=== PATIENT | male | born 1955 ===

== ENCOUNTER 2021-12-19 11:42 | Inpatient (IN) | payer MEDICARE, OTHER ==
[~2021-12-19] VITALS: Ht 177.8 cm; Wt 95.3 kg
[2021-12-19 14:50] VITALS: BP 154/97
[2021-12-19] MEDS ORDERED: MELATONIN 5 MG TABLET PO PRN (15:00)
[2021-12-19] MEDS: SIMETHICONE 80 MG CHEWABLE TABLET CHEW SCH ×2 (16:51→20:23)
[2021-12-19] MEDS: NIACIN 500 MG TABLET PO SCH (16:52)
[2021-12-19] MEDS: HEPARIN SODIUM,PORCINE 5,000 UNITS/ML VIAL SQ SCH ×2 (16:52→20:23)
[2021-12-19 17:15] VITALS: BP 112/71
[2021-12-19] MEDS: OxyCODONE HCL 5 MG IR TABLET PO PRN ×2 (17:35→23:41)
[2021-12-19] MEDS ORDERED: DiphenhydrAMINE HCL 25 MG CAPSULE PO PRN (17:45)
[2021-12-19 20:10] VITALS: BP 139/102
[2021-12-19] MEDS: ETHYL ALCOHOL 62% ANTISEPTIC NASAL SANITIZER 0.6 ML AMPUL NASAL SCH (20:24)
[2021-12-19] MEDS: DOCUSATE SODIUM 100 MG CAPSULE PO SCH (20:24)
[2021-12-19] MEDS: SENNA 187 MG TABLET PO SCH (20:24)
[2021-12-19] MEDS: GABAPENTIN 300 MG CAPSULE PO SCH (20:53)
[2021-12-20] MEDS: OMEPRAZOLE 20 MG CAPSULE PO SCH (06:28)
[2021-12-20 06:54] LABS: BASOPHILS % (AUTO) 0.4 % (0.0-2.0); EOSINOPHILS % (AUTO) 1.2 % (1.0-6.0); HEMATOCRIT 36.6 % (41-53); LYMPHOCYTES # (AUTO) 1.6 K/uL (1.0-4.8); MEAN CORPUSCULAR HEMOGLOBIN 30.5 pg (26.0-34.0); MEAN CORPUSCULAR HGB CONC 32.9 G/dL (31.0-37.0); MEAN CORPUSCULAR VOLUME 93 fL (80-100); MONOCYTES # (AUTO) 0.6 K/uL (0.1-1.0); MONOCYTES % (AUTO) 7.3 % (2.0-9.0); NEUTROPHILS # (AUTO) 6.5 K/uL (1.8-7.7); NEUTROPHILS % (AUTO) 73.1 % (40.0-70.0); PLATELET COUNT (AUTO) 235 K/uL (150-450); RED BLOOD CELL COUNT(AUTO) 3.94 MIL/uL (4.50-5.90); RED CELL DISTRIBUTION WIDTH 14.1 % (11.5-14.5)
[2021-12-20 07:12] LABS: ALBUMIN 3.5 g/dL (3.4-5.0); BILIRUBIN,TOTAL 0.9 mg/dL (0.1-1.0); CALCIUM, TOTAL 9.7 mg/dL (8.8-10.5); CREATININE 1.42 mg/dL (0.60-1.30); TOTAL PROTEIN, SERUM 7.5 g/dL (6.4-8.2)
[2021-12-20] MEDS: NIACIN 500 MG TABLET PO SCH ×2 (07:30→17:00)
[2021-12-20 07:40] VITALS: BP 125/82
[2021-12-20] MEDS: SIMETHICONE 80 MG CHEWABLE TABLET CHEW SCH ×4 (07:56→20:24)
[2021-12-20] MEDS: ETHYL ALCOHOL 62% ANTISEPTIC NASAL SANITIZER 0.6 ML AMPUL NASAL SCH ×2 (07:56→20:25)
[2021-12-20] MEDS: ATORVASTATIN CALCIUM 20 MG TABLET PO SCH (07:57)
[2021-12-20] MEDS: CloNIDine HCL 0.1 MG TABLET PO SCH (07:57)
[2021-12-20] MEDS: POLYETHYLENE GLYCOL 3350 17 GM PACKET PO SCH (07:57)
[2021-12-20] MEDS: DOCUSATE SODIUM 100 MG CAPSULE PO SCH ×2 (07:57→20:25)
[2021-12-20] MEDS: AmLODIPine BESYLATE 10 MG TABLET PO SCH (07:58)
[2021-12-20] MEDS: HEPARIN SODIUM,PORCINE 5,000 UNITS/ML VIAL SQ SCH ×3 (07:58→20:25)
[2021-12-20] MEDS: OxyCODONE HCL 5 MG IR TABLET PO PRN ×4 (07:59→23:25)
[2021-12-20] MEDS ORDERED: GABAPENTIN 300 MG CAPSULE PO SCH (09:00)
[2021-12-20 19:58] VITALS: BP 113/66
[2021-12-20] MEDS: SENNA 187 MG TABLET PO SCH (20:24)
[2021-12-20] MEDS: GABAPENTIN 300 MG CAPSULE PO SCH (20:24)
[2021-12-20] MEDS: TraZODone HCL 100 MG TABLET PO PRN (20:26)
[2021-12-21] MEDS: OMEPRAZOLE 20 MG CAPSULE PO SCH ×2 (06:25→06:50)
[2021-12-21] MEDS: OxyCODONE HCL 5 MG IR TABLET PO PRN ×3 (06:26→10:38)
[2021-12-21] MEDS: NIACIN 500 MG TABLET PO SCH ×2 (07:30→17:00)
[2021-12-21] MEDS: SIMETHICONE 80 MG CHEWABLE TABLET CHEW SCH ×4 (08:51→20:33)
[2021-12-21] MEDS: CloNIDine HCL 0.1 MG TABLET PO SCH (08:51)
[2021-12-21] MEDS: DOCUSATE SODIUM 100 MG CAPSULE PO SCH ×2 (08:52→20:33)
[2021-12-21] MEDS: ATORVASTATIN CALCIUM 20 MG TABLET PO SCH (08:52)
[2021-12-21] MEDS: AmLODIPine BESYLATE 10 MG TABLET PO SCH (08:52)
[2021-12-21] MEDS: POLYETHYLENE GLYCOL 3350 17 GM PACKET PO SCH (08:53)
[2021-12-21] MEDS: ACETAMINOPHEN 325 MG TABLET PO PRN (08:54)
[2021-12-21] MEDS: HEPARIN SODIUM,PORCINE 5,000 UNITS/ML VIAL SQ SCH ×3 (08:54→20:35)
[2021-12-21] MEDS: ETHYL ALCOHOL 62% ANTISEPTIC NASAL SANITIZER 0.6 ML AMPUL NASAL SCH ×2 (10:03→20:33)
[2021-12-21] MEDS: OxyCODONE HCL 10 MG IR TABLET PO PRN (14:30)
[2021-12-21 17:59] LABS: APPEARANCE,URINE CLEAR (CLEAR); BILIRUBIN,URINE NEGATIVE (NEGATIVE); GLUCOSE, URINE (UA) NEGATIVE (NEGATIVE); KETONES,URINE NEGATIVE (NEGATIVE); LEUKOCYTE ESTERASE ,URINE NEGATIVE (NEGATIVE); NITRATE,URINE NEGATIVE (NEGATIVE); OCCULT BLOOD,URINE NEGATIVE (NEGATIVE); PH,URINE 5.5 (5.0-8.0); PROTEIN,URINE NEGATIVE (NEGATIVE); SPECIFIC GRAVITIY, URINE 1.015 (1.003-1.030); UROBILINOGEN,URINE <=1.0 mg/dL (<=1.0)
[2021-12-21 20:30] VITALS: BP 118/70
[2021-12-21] MEDS: TAMSULOSIN HCL 0.4 MG CAPSULE PO SCH (20:33)
[2021-12-21] MEDS: GABAPENTIN 300 MG CAPSULE PO SCH (20:33)
[2021-12-21] MEDS: SENNA 187 MG TABLET PO SCH (20:34)
[2021-12-21] MEDS: TraZODone HCL 100 MG TABLET PO PRN (20:34)
[2021-12-22] MEDS: COLCHICINE 0.6 MG TABLET PO PRN ×2 (05:02→17:07)
[2021-12-22] MEDS: OMEPRAZOLE 20 MG CAPSULE PO SCH (06:36)
[2021-12-22] MEDS: NIACIN 500 MG TABLET PO SCH ×2 (07:30→17:00)
[2021-12-22 08:17] VITALS: BP 131/66
[2021-12-22] MEDS: POLYETHYLENE GLYCOL 3350 17 GM PACKET PO SCH (09:00)
[2021-12-22] MEDS: DOCUSATE SODIUM 100 MG CAPSULE PO SCH ×2 (09:00→20:34)
[2021-12-22] MEDS: OxyCODONE HCL 10 MG IR TABLET PO PRN ×3 (09:38→22:03)
[2021-12-22] MEDS: ETHYL ALCOHOL 62% ANTISEPTIC NASAL SANITIZER 0.6 ML AMPUL NASAL SCH ×2 (09:38→20:33)
[2021-12-22] MEDS: SIMETHICONE 80 MG CHEWABLE TABLET CHEW SCH ×4 (09:38→20:33)
[2021-12-22] MEDS: AmLODIPine BESYLATE 10 MG TABLET PO SCH (09:38)
[2021-12-22] MEDS: ATORVASTATIN CALCIUM 20 MG TABLET PO SCH (09:38)
[2021-12-22] MEDS: CloNIDine HCL 0.1 MG TABLET PO SCH (09:38)
[2021-12-22] MEDS: HEPARIN SODIUM,PORCINE 5,000 UNITS/ML VIAL SQ SCH ×3 (09:39→20:29)
[2021-12-22 20:30] VITALS: BP 122/81
[2021-12-22] MEDS: GABAPENTIN 300 MG CAPSULE PO SCH (20:33)
[2021-12-22] MEDS: TAMSULOSIN HCL 0.4 MG CAPSULE PO SCH (20:33)
[2021-12-22] MEDS: SENNA 187 MG TABLET PO SCH (20:35)
[2021-12-22] MEDS: TraZODone HCL 100 MG TABLET PO PRN (21:58)
[2021-12-23] MEDS: OMEPRAZOLE 20 MG CAPSULE PO SCH (06:08)
[2021-12-23] MEDS: OxyCODONE HCL 10 MG IR TABLET PO PRN ×3 (06:09→22:32)
[2021-12-23] MEDS: NIACIN 500 MG TABLET PO SCH ×2 (07:30→16:21)
[2021-12-23 08:00] VITALS: BP 117/66
[2021-12-23] MEDS: HEPARIN SODIUM,PORCINE 5,000 UNITS/ML VIAL SQ SCH ×3 (08:01→20:25)
[2021-12-23] MEDS: SIMETHICONE 80 MG CHEWABLE TABLET CHEW SCH ×4 (08:02→20:22)
[2021-12-23] MEDS: ATORVASTATIN CALCIUM 20 MG TABLET PO SCH (08:04)
[2021-12-23] MEDS: CloNIDine HCL 0.1 MG TABLET PO SCH (08:04)
[2021-12-23] MEDS: AmLODIPine BESYLATE 10 MG TABLET PO SCH (08:04)
[2021-12-23] MEDS: DOCUSATE SODIUM 100 MG CAPSULE PO SCH ×2 (08:04→20:23)
[2021-12-23] MEDS: POLYETHYLENE GLYCOL 3350 17 GM PACKET PO SCH (08:04)
[2021-12-23] MEDS: ETHYL ALCOHOL 62% ANTISEPTIC NASAL SANITIZER 0.6 ML AMPUL NASAL SCH ×2 (08:07→20:24)
[2021-12-23] MEDS: COLCHICINE 0.6 MG TABLET PO PRN (09:20)
[2021-12-23 20:00] VITALS: BP 128/90
[2021-12-23] MEDS: TAMSULOSIN HCL 0.4 MG CAPSULE PO SCH (20:23)
[2021-12-23] MEDS: TraZODone HCL 100 MG TABLET PO PRN (20:24)
[2021-12-23] MEDS: GABAPENTIN 300 MG CAPSULE PO SCH (20:24)
[2021-12-23] MEDS: SENNA 187 MG TABLET PO SCH (20:24)
[2021-12-24] MEDS: OMEPRAZOLE 20 MG CAPSULE PO SCH (06:30)
[2021-12-24] MEDS: NIACIN 500 MG TABLET PO SCH ×2 (08:08→16:23)
[2021-12-24] MEDS: DOCUSATE SODIUM 100 MG CAPSULE PO SCH ×2 (08:08→20:39)
[2021-12-24] MEDS: ATORVASTATIN CALCIUM 20 MG TABLET PO SCH (08:09)
[2021-12-24] MEDS: SIMETHICONE 80 MG CHEWABLE TABLET CHEW SCH ×4 (08:09→20:40)
[2021-12-24] MEDS: ETHYL ALCOHOL 62% ANTISEPTIC NASAL SANITIZER 0.6 ML AMPUL NASAL SCH ×2 (08:10→20:40)
[2021-12-24] MEDS: AmLODIPine BESYLATE 10 MG TABLET PO SCH (08:10)
[2021-12-24] MEDS: CloNIDine HCL 0.1 MG TABLET PO SCH (08:11)
[2021-12-24] MEDS: HEPARIN SODIUM,PORCINE 5,000 UNITS/ML VIAL SQ SCH ×3 (08:14→20:40)
[2021-12-24] MEDS: OxyCODONE HCL 5 MG IR TABLET PO PRN ×2 (08:24→22:26)
[2021-12-24 08:30] VITALS: BP 109/82
[2021-12-24] MEDS: POLYETHYLENE GLYCOL 3350 17 GM PACKET PO SCH (08:30)
[2021-12-24] MEDS: OxyCODONE HCL 10 MG IR TABLET PO PRN (14:58)
[2021-12-24 20:04] VITALS: BP 139/86
[2021-12-24] MEDS: TAMSULOSIN HCL 0.4 MG CAPSULE PO SCH (20:39)
[2021-12-24] MEDS: SENNA 187 MG TABLET PO SCH (20:39)
[2021-12-24] MEDS: TraZODone HCL 100 MG TABLET PO PRN (20:39)
[2021-12-24] MEDS: GABAPENTIN 300 MG CAPSULE PO SCH (20:40)
[2021-12-25] MEDS: OMEPRAZOLE 20 MG CAPSULE PO SCH (06:12)
[2021-12-25] MEDS: NIACIN 500 MG TABLET PO SCH ×2 (07:30→17:00)
[2021-12-25] MEDS: SIMETHICONE 80 MG CHEWABLE TABLET CHEW SCH ×4 (07:53→20:55)
[2021-12-25] MEDS: CloNIDine HCL 0.1 MG TABLET PO SCH (07:54)
[2021-12-25] MEDS: AmLODIPine BESYLATE 10 MG TABLET PO SCH (07:54)
[2021-12-25] MEDS: ETHYL ALCOHOL 62% ANTISEPTIC NASAL SANITIZER 0.6 ML AMPUL NASAL SCH ×2 (07:54→20:55)
[2021-12-25] MEDS: POLYETHYLENE GLYCOL 3350 17 GM PACKET PO SCH (07:54)
[2021-12-25] MEDS: ATORVASTATIN CALCIUM 20 MG TABLET PO SCH (07:54)
[2021-12-25] MEDS: DOCUSATE SODIUM 100 MG CAPSULE PO SCH ×2 (07:54→20:55)
[2021-12-25 07:55] VITALS: BP 128/78
[2021-12-25] MEDS: HEPARIN SODIUM,PORCINE 5,000 UNITS/ML VIAL SQ SCH ×3 (07:55→20:57)
[2021-12-25] MEDS: OxyCODONE HCL 10 MG IR TABLET PO PRN (07:56)
[2021-12-25] MEDS: OxyCODONE HCL 5 MG IR TABLET PO PRN ×3 (13:10→23:08)
[2021-12-25] MEDS: TraZODone HCL 100 MG TABLET PO PRN (20:55)
[2021-12-25] MEDS: TAMSULOSIN HCL 0.4 MG CAPSULE PO SCH (20:56)
[2021-12-25] MEDS: GABAPENTIN 300 MG CAPSULE PO SCH (20:56)
[2021-12-25] MEDS: COLCHICINE 0.6 MG TABLET PO PRN (20:58)
[2021-12-25 21:00] VITALS: BP 103/71
[2021-12-25] MEDS: SENNA 187 MG TABLET PO SCH (21:19)
[2021-12-26] MEDS: OMEPRAZOLE 20 MG CAPSULE PO SCH (06:09)
[2021-12-26] MEDS: NIACIN 500 MG TABLET PO SCH ×2 (07:30→16:12)
[2021-12-26] MEDS: ETHYL ALCOHOL 62% ANTISEPTIC NASAL SANITIZER 0.6 ML AMPUL NASAL SCH ×2 (08:25→21:19)
[2021-12-26] MEDS: CloNIDine HCL 0.1 MG TABLET PO SCH (08:25)
[2021-12-26] MEDS: DOCUSATE SODIUM 100 MG CAPSULE PO SCH ×2 (08:25→21:20)
[2021-12-26] MEDS: SIMETHICONE 80 MG CHEWABLE TABLET CHEW SCH ×4 (08:25→21:20)
[2021-12-26] MEDS: ATORVASTATIN CALCIUM 20 MG TABLET PO SCH (08:25)
[2021-12-26] MEDS: HEPARIN SODIUM,PORCINE 5,000 UNITS/ML VIAL SQ SCH ×3 (08:26→21:20)
[2021-12-26] MEDS: POLYETHYLENE GLYCOL 3350 17 GM PACKET PO SCH (08:26)
[2021-12-26] MEDS: AmLODIPine BESYLATE 10 MG TABLET PO SCH (08:26)
[2021-12-26 09:07] VITALS: BP 116/75
[2021-12-26] MEDS: OxyCODONE HCL 5 MG IR TABLET PO PRN ×3 (13:20→22:33)
[2021-12-26 20:00] VITALS: BP_SYST 114; BP_SYST 152; BP_DIAS 47; BP_DIAS 88
[2021-12-26] MEDS: GABAPENTIN 300 MG CAPSULE PO SCH (21:19)
[2021-12-26] MEDS: TAMSULOSIN HCL 0.4 MG CAPSULE PO SCH (21:19)
[2021-12-26] MEDS: SENNA 187 MG TABLET PO SCH (21:19)
[2021-12-26] MEDS: TraZODone HCL 100 MG TABLET PO PRN (21:20)
[2021-12-27] MEDS: OMEPRAZOLE 20 MG CAPSULE PO SCH (06:35)
[2021-12-27] MEDS: NIACIN 500 MG TABLET PO SCH ×2 (07:30→16:30)
[2021-12-27 07:47] LABS: BASOPHILS % (AUTO) 0.6 % (0.0-2.0); EOSINOPHILS % (AUTO) 2.8 % (1.0-6.0); HEMATOCRIT 32.8 % (41-53); LYMPHOCYTES # (AUTO) 2.1 K/uL (1.0-4.8); LYMPHOCYTES % (AUTO) 27.8 % (22.0-44.0); MEAN CORPUSCULAR HEMOGLOBIN 30.9 pg (26.0-34.0); MEAN CORPUSCULAR HGB CONC 33.6 G/dL (31.0-37.0); MEAN CORPUSCULAR VOLUME 92 fL (80-100); MONOCYTES # (AUTO) 0.5 K/uL (0.1-1.0); MONOCYTES % (AUTO) 6.1 % (2.0-9.0); NEUTROPHILS # (AUTO) 4.8 K/uL (1.8-7.7); NEUTROPHILS % (AUTO) 62.7 % (40.0-70.0); PLATELET COUNT (AUTO) 369 K/uL (150-450); RED BLOOD CELL COUNT(AUTO) 3.56 MIL/uL (4.50-5.90); RED CELL DISTRIBUTION WIDTH 13.6 % (11.5-14.5)
[2021-12-27] MEDS: DOCUSATE SODIUM 100 MG CAPSULE PO SCH ×2 (07:51→20:40)
[2021-12-27] MEDS: SIMETHICONE 80 MG CHEWABLE TABLET CHEW SCH ×4 (07:51→20:40)
[2021-12-27] MEDS: AmLODIPine BESYLATE 10 MG TABLET PO SCH (07:51)
[2021-12-27] MEDS: ATORVASTATIN CALCIUM 20 MG TABLET PO SCH (07:51)
[2021-12-27] MEDS: HEPARIN SODIUM,PORCINE 5,000 UNITS/ML VIAL SQ SCH ×4 (07:51→20:48)
[2021-12-27] MEDS: POLYETHYLENE GLYCOL 3350 17 GM PACKET PO SCH (07:51)
[2021-12-27] MEDS: ETHYL ALCOHOL 62% ANTISEPTIC NASAL SANITIZER 0.6 ML AMPUL NASAL SCH ×2 (07:52→20:41)
[2021-12-27] MEDS: CloNIDine HCL 0.1 MG TABLET PO SCH (07:52)
[2021-12-27 07:53] LABS: CALCIUM, TOTAL 9.5 mg/dL (8.8-10.5); CREATININE 1.62 mg/dL (0.60-1.30); POTASSIUM 4.1 mmol/L (3.5-5.1)
[2021-12-27 08:57] VITALS: BP 119/68
[2021-12-27 09:15] VITALS: BP 119/68
[2021-12-27] MEDS: OxyCODONE HCL 5 MG IR TABLET PO PRN (10:37)
[2021-12-27] MEDS: GABAPENTIN 300 MG CAPSULE PO SCH (20:40)
[2021-12-27] MEDS: TAMSULOSIN HCL 0.4 MG CAPSULE PO SCH (20:40)
[2021-12-27 20:41] VITALS: BP 127/68
[2021-12-27] MEDS: OxyCODONE HCL 10 MG IR TABLET PO PRN (20:41)
[2021-12-27] MEDS: TraZODone HCL 100 MG TABLET PO PRN (22:04)
[2021-12-27] MEDS: SENNA 187 MG TABLET PO SCH (22:04)
[2021-12-28] MEDS: COLCHICINE 0.6 MG TABLET PO PRN (06:22)
[2021-12-28] MEDS: OMEPRAZOLE 20 MG CAPSULE PO SCH (06:22)
[2021-12-28] MEDS: NIACIN 500 MG TABLET PO SCH ×2 (07:30→16:32)
[2021-12-28 07:40] VITALS: BP 135/86
[2021-12-28] MEDS: AmLODIPine BESYLATE 10 MG TABLET PO SCH (08:12)
[2021-12-28] MEDS: CloNIDine HCL 0.1 MG TABLET PO SCH (08:12)
[2021-12-28] MEDS: ETHYL ALCOHOL 62% ANTISEPTIC NASAL SANITIZER 0.6 ML AMPUL NASAL SCH ×2 (08:12→20:58)
[2021-12-28] MEDS: SIMETHICONE 80 MG CHEWABLE TABLET CHEW SCH ×4 (08:12→20:58)
[2021-12-28] MEDS: POLYETHYLENE GLYCOL 3350 17 GM PACKET PO SCH (08:12)
[2021-12-28] MEDS: DOCUSATE SODIUM 100 MG CAPSULE PO SCH ×2 (08:12→20:58)
[2021-12-28] MEDS: ATORVASTATIN CALCIUM 20 MG TABLET PO SCH (08:12)
[2021-12-28] MEDS: HEPARIN SODIUM,PORCINE 5,000 UNITS/ML VIAL SQ SCH ×3 (08:13→20:58)
[2021-12-28] MEDS: OxyCODONE HCL 5 MG IR TABLET PO PRN ×2 (08:13→21:57)
[2021-12-28 20:10] VITALS: BP 131/78
[2021-12-28] MEDS: TAMSULOSIN HCL 0.4 MG CAPSULE PO SCH (20:58)
[2021-12-28] MEDS: SENNA 187 MG TABLET PO SCH (20:58)
[2021-12-28] MEDS: GABAPENTIN 300 MG CAPSULE PO SCH (20:59)
[2021-12-28] MEDS: TraZODone HCL 100 MG TABLET PO PRN (21:04)
[2021-12-29] MEDS ORDERED: ATOR20TA86 PO (03:57)
[2021-12-29] MEDS ORDERED: AMLO-258 PO (03:58)
[2021-12-29] MEDS ORDERED: GABA-1181 PO ×2 (04:02→04:13)
[2021-12-29] MEDS ORDERED: CLON0.1T2 PO (04:02)
[2021-12-29] MEDS ORDERED: DOCU-385 PO (04:12)
[2021-12-29] MEDS ORDERED: OMEP20 PO (04:15)
[2021-12-29] MEDS ORDERED: SIME80TA82 PO (04:16)
[2021-12-29] MEDS ORDERED: TAMS-13 PO (04:17)
[2021-12-29] MEDS: COLCHICINE 0.6 MG TABLET PO PRN (06:21)
[2021-12-29] MEDS: OMEPRAZOLE 20 MG CAPSULE PO SCH (06:21)
[2021-12-29] MEDS: NIACIN 500 MG TABLET PO SCH ×2 (07:30→16:18)
[2021-12-29 08:05] VITALS: BP 118/69
[2021-12-29] MEDS: ETHYL ALCOHOL 62% ANTISEPTIC NASAL SANITIZER 0.6 ML AMPUL NASAL SCH ×2 (08:18→20:37)
[2021-12-29] MEDS: SIMETHICONE 80 MG CHEWABLE TABLET CHEW SCH ×4 (08:18→20:36)
[2021-12-29] MEDS: POLYETHYLENE GLYCOL 3350 17 GM PACKET PO SCH (08:18)
[2021-12-29] MEDS: AmLODIPine BESYLATE 10 MG TABLET PO SCH (08:19)
[2021-12-29] MEDS: CloNIDine HCL 0.1 MG TABLET PO SCH (08:19)
[2021-12-29] MEDS: ATORVASTATIN CALCIUM 20 MG TABLET PO SCH (08:19)
[2021-12-29] MEDS: DOCUSATE SODIUM 100 MG CAPSULE PO SCH ×2 (08:19→20:37)
[2021-12-29] MEDS: HEPARIN SODIUM,PORCINE 5,000 UNITS/ML VIAL SQ SCH ×3 (08:20→20:38)
[2021-12-29] MEDS: OxyCODONE HCL 5 MG IR TABLET PO PRN ×3 (09:03→23:55)
[2021-12-29 20:30] VITALS: BP 131/75
[2021-12-29] MEDS: GABAPENTIN 300 MG CAPSULE PO SCH (20:37)
[2021-12-29] MEDS: SENNA 187 MG TABLET PO SCH (20:37)
[2021-12-29] MEDS: TraZODone HCL 100 MG TABLET PO PRN (20:37)
[2021-12-29] MEDS: TAMSULOSIN HCL 0.4 MG CAPSULE PO SCH (20:37)
[2021-12-30] MEDS: OMEPRAZOLE 20 MG CAPSULE PO SCH (06:15)
[2021-12-30] MEDS: OxyCODONE HCL 5 MG IR TABLET PO PRN ×3 (06:15→23:28)
[2021-12-30] MEDS: NIACIN 500 MG TABLET PO SCH ×3 (07:30→16:52)
[2021-12-30 08:07] VITALS: BP 119/88
[2021-12-30] MEDS: SIMETHICONE 80 MG CHEWABLE TABLET CHEW SCH ×4 (08:15→21:06)
[2021-12-30] MEDS: DOCUSATE SODIUM 100 MG CAPSULE PO SCH ×2 (08:16→21:06)
[2021-12-30] MEDS: ATORVASTATIN CALCIUM 20 MG TABLET PO SCH (08:16)
[2021-12-30] MEDS: ETHYL ALCOHOL 62% ANTISEPTIC NASAL SANITIZER 0.6 ML AMPUL NASAL SCH ×2 (08:16→21:06)
[2021-12-30] MEDS: CloNIDine HCL 0.1 MG TABLET PO SCH (08:16)
[2021-12-30] MEDS: AmLODIPine BESYLATE 10 MG TABLET PO SCH (08:17)
[2021-12-30] MEDS: POLYETHYLENE GLYCOL 3350 17 GM PACKET PO SCH (08:17)
[2021-12-30] MEDS: HEPARIN SODIUM,PORCINE 5,000 UNITS/ML VIAL SQ SCH ×3 (08:20→21:07)
[2021-12-30 20:50] VITALS: BP 131/80
[2021-12-30] MEDS: SENNA 187 MG TABLET PO SCH (21:06)
[2021-12-30] MEDS: GABAPENTIN 300 MG CAPSULE PO SCH (21:06)
[2021-12-30] MEDS: TAMSULOSIN HCL 0.4 MG CAPSULE PO SCH (21:06)
[2021-12-30] MEDS: TraZODone HCL 100 MG TABLET PO PRN (21:07)
[2021-12-31] MEDS: OMEPRAZOLE 20 MG CAPSULE PO SCH (06:40)
[2021-12-31] MEDS: NIACIN 500 MG TABLET PO SCH ×2 (07:30→16:02)
[2021-12-31 07:34] LABS: BASOPHILS % (AUTO) 0.4 % (0.0-2.0); EOSINOPHILS % (AUTO) 2.2 % (1.0-6.0); HEMATOCRIT 30.7 % (41-53); HEMOGLOBIN 10.3 g/dL (13.5-17.5); LYMPHOCYTES # (AUTO) 1.7 K/uL (1.0-4.8); LYMPHOCYTES % (AUTO) 24.4 % (22.0-44.0); MEAN CORPUSCULAR HEMOGLOBIN 30.8 pg (26.0-34.0); MEAN CORPUSCULAR HGB CONC 33.6 G/dL (31.0-37.0); MEAN CORPUSCULAR VOLUME 92 fL (80-100); MONOCYTES # (AUTO) 0.6 K/uL (0.1-1.0); MONOCYTES % (AUTO) 8.6 % (2.0-9.0); NEUTROPHILS # (AUTO) 4.6 K/uL (1.8-7.7); NEUTROPHILS % (AUTO) 64.4 % (40.0-70.0); PLATELET COUNT (AUTO) 328 K/uL (150-450); RED BLOOD CELL COUNT(AUTO) 3.35 MIL/uL (4.50-5.90); RED CELL DISTRIBUTION WIDTH 13.9 % (11.5-14.5)
[2021-12-31 07:55] VITALS: BP 123/83
[2021-12-31] MEDS: SIMETHICONE 80 MG CHEWABLE TABLET CHEW SCH ×4 (07:55→20:08)
[2021-12-31] MEDS: DOCUSATE SODIUM 100 MG CAPSULE PO SCH ×2 (07:55→20:08)
[2021-12-31] MEDS: CloNIDine HCL 0.1 MG TABLET PO SCH (07:55)
[2021-12-31] MEDS: ATORVASTATIN CALCIUM 20 MG TABLET PO SCH (07:55)
[2021-12-31] MEDS: ETHYL ALCOHOL 62% ANTISEPTIC NASAL SANITIZER 0.6 ML AMPUL NASAL SCH ×2 (07:55→20:09)
[2021-12-31] MEDS: AmLODIPine BESYLATE 10 MG TABLET PO SCH (07:55)
[2021-12-31] MEDS: POLYETHYLENE GLYCOL 3350 17 GM PACKET PO SCH (07:55)
[2021-12-31] MEDS: HEPARIN SODIUM,PORCINE 5,000 UNITS/ML VIAL SQ SCH ×3 (07:57→20:09)
[2021-12-31] MEDS: OxyCODONE HCL 5 MG IR TABLET PO PRN (07:57)
[2021-12-31 08:00] LABS: CALCIUM, TOTAL 9.1 mg/dL (8.8-10.5); CHOL/HDL RATIO 3.4 (4.2-7.3); CREATININE 1.54 mg/dL (0.60-1.30); POTASSIUM 3.9 mmol/L (3.5-5.1)
[2021-12-31 11:49] LABS: APPEARANCE,URINE CLEAR (CLEAR); BILIRUBIN,URINE NEGATIVE (NEGATIVE); GLUCOSE, URINE (UA) NEGATIVE (NEGATIVE); KETONES,URINE NEGATIVE (NEGATIVE); LEUKOCYTE ESTERASE ,URINE NEGATIVE (NEGATIVE); NITRATE,URINE NEGATIVE (NEGATIVE); OCCULT BLOOD,URINE NEGATIVE (NEGATIVE); PH,URINE 6.5 (5.0-8.0); PROTEIN,URINE NEGATIVE (NEGATIVE); SPECIFIC GRAVITIY, URINE 1.011 (1.003-1.030); UROBILINOGEN,URINE <=1.0 mg/dL (<=1.0)
[2021-12-31 12:00] LABS: BACTERIA,URINE None Seen /HPF (None Seen); RBC,URINE None Seen /HPF (0-2); WBC,URINE None Seen /HPF (0-5)
[2021-12-31] MEDS: TAMSULOSIN HCL 0.4 MG CAPSULE PO SCH (20:08)
[2021-12-31] MEDS: GABAPENTIN 300 MG CAPSULE PO SCH (20:08)
[2021-12-31] MEDS: SENNA 187 MG TABLET PO SCH (20:08)
[2021-12-31] MEDS: TraZODone HCL 100 MG TABLET PO PRN (20:09)
[2021-12-31 20:30] VITALS: BP 112/72
[2022-01-01] MEDS: OxyCODONE HCL 5 MG IR TABLET PO PRN ×3 (03:43→22:02)
[2022-01-01] MEDS: OMEPRAZOLE 20 MG CAPSULE PO SCH (06:27)
[2022-01-01] MEDS: NIACIN 500 MG TABLET PO SCH ×2 (07:30→16:49)
[2022-01-01 08:05] VITALS: BP 112/64
[2022-01-01] MEDS: ETHYL ALCOHOL 62% ANTISEPTIC NASAL SANITIZER 0.6 ML AMPUL NASAL SCH ×2 (08:07→20:32)
[2022-01-01] MEDS: SIMETHICONE 80 MG CHEWABLE TABLET CHEW SCH ×4 (08:07→20:32)
[2022-01-01] MEDS: DOCUSATE SODIUM 100 MG CAPSULE PO SCH ×2 (08:08→20:32)
[2022-01-01] MEDS: AmLODIPine BESYLATE 10 MG TABLET PO SCH (08:08)
[2022-01-01] MEDS: POLYETHYLENE GLYCOL 3350 17 GM PACKET PO SCH (08:08)
[2022-01-01] MEDS: ATORVASTATIN CALCIUM 20 MG TABLET PO SCH (08:08)
[2022-01-01] MEDS: HEPARIN SODIUM,PORCINE 5,000 UNITS/ML VIAL SQ SCH ×3 (08:08→20:32)
[2022-01-01] MEDS: CloNIDine HCL 0.1 MG TABLET PO SCH (08:08)
[2022-01-01 20:01] VITALS: BP 128/66
[2022-01-01] MEDS: TAMSULOSIN HCL 0.4 MG CAPSULE PO SCH (20:32)
[2022-01-01] MEDS: GABAPENTIN 300 MG CAPSULE PO SCH (20:32)
[2022-01-01] MEDS: TraZODone HCL 100 MG TABLET PO PRN (20:32)
[2022-01-01] MEDS: SENNA 187 MG TABLET PO SCH (20:32)
[2022-01-02] MEDS: OxyCODONE HCL 5 MG IR TABLET PO PRN ×3 (02:31→20:26)
[2022-01-02] MEDS: OMEPRAZOLE 20 MG CAPSULE PO SCH (06:25)
[2022-01-02] MEDS: COLCHICINE 0.6 MG TABLET PO PRN (06:29)
[2022-01-02] MEDS: NIACIN 500 MG TABLET PO SCH ×2 (07:30→15:27)
[2022-01-02 08:30] VITALS: BP 142/86
[2022-01-02] MEDS: CloNIDine HCL 0.1 MG TABLET PO SCH (08:39)
[2022-01-02] MEDS: DOCUSATE SODIUM 100 MG CAPSULE PO SCH ×2 (08:39→20:23)
[2022-01-02] MEDS: ATORVASTATIN CALCIUM 20 MG TABLET PO SCH (08:39)
[2022-01-02] MEDS: AmLODIPine BESYLATE 10 MG TABLET PO SCH (08:39)
[2022-01-02] MEDS: POLYETHYLENE GLYCOL 3350 17 GM PACKET PO SCH (08:40)
[2022-01-02] MEDS: SIMETHICONE 80 MG CHEWABLE TABLET CHEW SCH ×4 (08:40→20:22)
[2022-01-02] MEDS: ETHYL ALCOHOL 62% ANTISEPTIC NASAL SANITIZER 0.6 ML AMPUL NASAL SCH ×2 (08:40→20:23)
[2022-01-02] MEDS: HEPARIN SODIUM,PORCINE 5,000 UNITS/ML VIAL SQ SCH ×3 (08:40→20:23)
[2022-01-02] MEDS: ACETAMINOPHEN 325 MG TABLET PO PRN (08:44)
[2022-01-02] MEDS: FEBUXOSTAT 40 MG TABLET PO SCH (10:42)
[2022-01-02 11:09] LABS: BASOPHILS % (AUTO) 0.4 % (0.0-2.0); EOSINOPHILS % (AUTO) 0.2 % (1.0-6.0); HEMATOCRIT 30.3 % (41-53); LYMPHOCYTES # (AUTO) 0.9 K/uL (1.0-4.8); LYMPHOCYTES % (AUTO) 8.3 % (22.0-44.0); MEAN CORPUSCULAR HEMOGLOBIN 30.2 pg (26.0-34.0); MEAN CORPUSCULAR HGB CONC 32.9 G/dL (31.0-37.0); MEAN CORPUSCULAR VOLUME 92 fL (80-100); MONOCYTES # (AUTO) 0.9 K/uL (0.1-1.0); MONOCYTES % (AUTO) 8.8 % (2.0-9.0); NEUTROPHILS # (AUTO) 8.6 K/uL (1.8-7.7); NEUTROPHILS % (AUTO) 82.3 % (40.0-70.0); PLATELET COUNT (AUTO) 302 K/uL (150-450); RED CELL DISTRIBUTION WIDTH 14.1 % (11.5-14.5)
[2022-01-02 11:45] LABS: URIC ACID 8.8 mg/dL (2.6-7.2)
[2022-01-02 11:57] LABS: C-REACTIVE PROTEIN QUANT 6.97 mg/dL (0.00-0.30); ERYTHROCYTE SEDIMENTATION RATE 65 MM/HR (0-15)
[2022-01-02] MEDS: DICLOFENAC SODIUM 1% 100 GM GEL [2GM] TP SCH ×2 (15:21→20:23)
[2022-01-02] MEDS: TAMSULOSIN HCL 0.4 MG CAPSULE PO SCH (20:23)
[2022-01-02] MEDS: GABAPENTIN 300 MG CAPSULE PO SCH (20:23)
[2022-01-02] MEDS: SENNA 187 MG TABLET PO SCH (20:23)
[2022-01-02 20:26] VITALS: BP 133/73
[2022-01-02] MEDS: TraZODone HCL 100 MG TABLET PO PRN (22:44)
[2022-01-03] MEDS: OxyCODONE HCL 5 MG IR TABLET PO PRN ×3 (00:26→23:29)
[2022-01-03] MEDS: OMEPRAZOLE 20 MG CAPSULE PO SCH (06:52)
[2022-01-03] MEDS: COLCHICINE 0.6 MG TABLET PO PRN (06:52)
[2022-01-03] MEDS: NIACIN 500 MG TABLET PO SCH ×2 (07:30→15:54)
[2022-01-03] MEDS: FEBUXOSTAT 40 MG TABLET PO SCH (07:34)
[2022-01-03] MEDS: DOCUSATE SODIUM 100 MG CAPSULE PO SCH ×2 (07:34→21:22)
[2022-01-03] MEDS: AmLODIPine BESYLATE 10 MG TABLET PO SCH (07:34)
[2022-01-03] MEDS: POLYETHYLENE GLYCOL 3350 17 GM PACKET PO SCH (07:34)
[2022-01-03] MEDS: ETHYL ALCOHOL 62% ANTISEPTIC NASAL SANITIZER 0.6 ML AMPUL NASAL SCH ×2 (07:34→21:22)
[2022-01-03] MEDS: DICLOFENAC SODIUM 1% 100 GM GEL [2GM] TP SCH ×3 (07:34→21:22)
[2022-01-03] MEDS: CloNIDine HCL 0.1 MG TABLET PO SCH (07:34)
[2022-01-03] MEDS: SIMETHICONE 80 MG CHEWABLE TABLET CHEW SCH ×4 (07:34→21:22)
[2022-01-03] MEDS: ATORVASTATIN CALCIUM 20 MG TABLET PO SCH (07:35)
[2022-01-03] MEDS: HEPARIN SODIUM,PORCINE 5,000 UNITS/ML VIAL SQ SCH ×3 (07:36→21:22)
[2022-01-03 08:50] VITALS: BP 137/86
[2022-01-03] MEDS ORDERED: PredniSONE 20 MG TABLET PO ONE (10:45)
[2022-01-03 20:06] VITALS: BP 121/72
[2022-01-03] MEDS: TraZODone HCL 100 MG TABLET PO PRN (21:22)
[2022-01-03] MEDS: GABAPENTIN 300 MG CAPSULE PO SCH (21:22)
[2022-01-03] MEDS: TAMSULOSIN HCL 0.4 MG CAPSULE PO SCH (21:22)
[2022-01-03] MEDS: SENNA 187 MG TABLET PO SCH (21:22)
[2022-01-04] MEDS: OMEPRAZOLE 20 MG CAPSULE PO SCH (06:41)
[2022-01-04] MEDS: COLCHICINE 0.6 MG TABLET PO PRN (06:41)
[2022-01-04] MEDS: NIACIN 500 MG TABLET PO SCH ×2 (07:30→16:12)
[2022-01-04] MEDS: SIMETHICONE 80 MG CHEWABLE TABLET CHEW SCH ×2 (08:10→11:56)
[2022-01-04] MEDS: DOCUSATE SODIUM 100 MG CAPSULE PO SCH (08:11)
[2022-01-04] MEDS: FEBUXOSTAT 40 MG TABLET PO SCH (08:11)
[2022-01-04] MEDS: AmLODIPine BESYLATE 10 MG TABLET PO SCH (08:11)
[2022-01-04] MEDS: CloNIDine HCL 0.1 MG TABLET PO SCH (08:11)
[2022-01-04] MEDS: ATORVASTATIN CALCIUM 20 MG TABLET PO SCH (08:12)
[2022-01-04] MEDS: POLYETHYLENE GLYCOL 3350 17 GM PACKET PO SCH (08:12)
[2022-01-04] MEDS: HEPARIN SODIUM,PORCINE 5,000 UNITS/ML VIAL SQ SCH ×2 (08:13→16:01)
[2022-01-04] MEDS: DICLOFENAC SODIUM 1% 100 GM GEL [2GM] TP SCH ×2 (08:13→16:01)
[2022-01-04] MEDS: ETHYL ALCOHOL 62% ANTISEPTIC NASAL SANITIZER 0.6 ML AMPUL NASAL SCH (08:14)
[2022-01-04] MEDS ORDERED: PredniSONE 20 MG TABLET PO ONE (09:00)
[2022-01-04 09:02] VITALS: BP 112/76
[2022-01-04] MEDS ORDERED: DOCU-385 PO ×2 (14:14→14:37)
[2022-01-04] MEDS ORDERED: AMLO-258 PO ×2 (14:14→14:37)
[2022-01-04] MEDS ORDERED: POLY17PO47 PO ×2 (14:14→14:37)
[2022-01-04] MEDS ORDERED: COLC0.6T73 PO ×2 (14:14→14:37)
[2022-01-04] MEDS ORDERED: SIME80TA13 CHEW ×2 (14:14→14:37)
[2022-01-04] MEDS ORDERED: ACET325T51 PO ×2 (14:14→14:37)
[2022-01-04] MEDS ORDERED: TAMS-13 PO ×2 (14:14→14:37)
[2022-01-04] MEDS ORDERED: OMEP20 PO ×2 (14:14→14:37)
[2022-01-04] MEDS ORDERED: DICL100G51 TP ×2 (14:14→14:37)
[2022-01-04] MEDS ORDERED: SENN-187 PO ×2 (14:14→14:37)
[2022-01-04] MEDS ORDERED: ATOR20TA65 PO ×2 (14:14→14:37)
[2022-01-04] MEDS ORDERED: TRAZ-257 PO ×2 (14:14→14:37)
[2022-01-04] MEDS ORDERED: FEBU40T PO ×2 (14:14→14:37)
[2022-01-04] MEDS ORDERED: GABA-1181 PO ×2 (14:14→14:37)
[2022-01-04] MEDS ORDERED: CLON0.1T2 PO ×2 (14:14→14:37)
[2022-01-04] MEDS ORDERED: OXYC5 PO ×2 (14:14→14:40)
[2022-01-04] MEDS ORDERED: DIPH25 PO ×2 (14:14→14:37)
[2022-01-04] MEDS ORDERED: SIMETHICONE 80 MG CHEWABLE TABLET CHEW PRN (14:15)
[2022-01-04] MEDS ORDERED: PRED5TAB2 PO (14:18)
[2022-01-04] MEDS ORDERED: PRED-729 PO (14:37)
== END 2022-01-04 17:05 | disposition home health service (06) | DRG 91 ==
LOC: 2WR 14:30
PROVIDERS: ADMIT Physical Medicine & Rehabilitation; ATTEND Physical Medicine & Rehabilitation
DX: G95.9 Disease of spinal cord, unspecified (principal); G82.50 Quadriplegia, unspecified; E46 Unspecified protein-calorie malnutrition; M54.17 Radiculopathy, lumbosacral region; G89.29 Other chronic pain; E78.5 Hyperlipidemia, unspecified; I12.9 Hypertensive chronic kidney disease with stage 1 through stage 4 chronic kidney disease, or unspecified chronic kidney disease; M19.90 Unspecified osteoarthritis, unspecified site; M1A.9XX1 Chronic gout, unspecified, with tophus (tophi); N18.9 Chronic kidney disease, unspecified; E66.9 Obesity, unspecified; M54.9 Dorsalgia, unspecified; M47.816 Spondylosis without myelopathy or radiculopathy, lumbar region; R33.9 Retention of urine, unspecified; K59.03 Drug induced constipation; T40.2X5A Adverse effect of other opioids, initial encounter; M48.02 Spinal stenosis, cervical region; R53.1 Weakness; Z79.899 Other long term (current) drug therapy; Z88.0 Allergy status to penicillin; Y92.89 Other specified places as the place of occurrence of the external cause; Z98.1 Arthrodesis status; Z68.30 Body mass index [BMI] 30.0-30.9, adult
CPT/HCPCS: 72141; 80048; 80053; 80061; 81001; 81003; 82271; 84153; 84550; 85025; 85651; 86140; 87081; 97110; 97112; 97116; 97140; 97150; 97163; 97167; 97530; 97535; 97760; 99366; J1644; Q9967